=== PATIENT | female | born 1960 | race African-American/Black ===

== ENCOUNTER 2022-11-11 23:49 | Emergency (ER) | payer OTHER ==
[2022-11-11 23:56] VITALS: RESP 18; BMI 33.3
[2022-11-12 05:31] LABS: INR 1.09 (0.83-1.09); PROTHROMBIN TIME (PATIENT) 12.6 SEC (9.7-13.0)
[2022-11-12 05:34] LABS: ACTIVATED PTT 30.9 SECONDS (25.2-36.5)
[2022-11-12 05:36] LABS: BASO % 0.5 % (0-2.0); EOS % 0.5 % (0-4.5); HEMATOCRIT 38.5 % (32.4-45.2); HEMOGLOBIN 12.8 GM/dL (10.7-15.3); LYMPH % 35.2 % (8-40); MCH 29.9 pg (25.7-33.7); MCHC 33.3 g/dl (32.0-36.0); MEAN CELL VOLUME 89.6 fl (80-96); MONO % 6.3 % (3.8-10.2); NEUT % 57.5 % (42.8-82.8); PLATELET COUNT 196 10^3/uL (134-434); POTASSIUM 4.4 mmol/L (3.5-5.1); RBC 4.29 M/mm3 (3.60-5.2); RDW 13.2 % (11.6-15.6)
[2022-11-12 05:40] LABS: ALBUMIN 4.1 g/dl (3.4-5.0); BLOOD UREA NITROGEN 11.4 mg/dL (7-18); CALCIUM 9.4 mg/dL (8.5-10.1); MAGNESIUM 2.2 mg/dL (1.8-2.4)
[2022-11-12 05:43] LABS: CREATININE 0.5 mg/dL (0.55-1.3)
[2022-11-12 05:45] LABS: BILIRUBIN,TOTAL 0.4 mg/dL (0.2-1); TOT PROT 7.8 g/dl (6.4-8.2)
[2022-11-12 06:35] LABS: N-TERMINAL BNP 33.2 pg/ml (5-125)
[2022-11-12] MEDS ORDERED: traMADol HCL 50 MG TABLET PO ONE (06:42)
[2022-11-12 06:50] VITALS: BP 126/59; PULSE 67; TEMP 98
[2022-11-12] MEDS ORDERED: traMADol HCL 50 MG TABLET ONE (07:09)
== END 2022-11-12 07:14 | disposition home or self-care (01) ==
LOC: JER 23:49
DX: R42 Dizziness and giddiness (principal); M54.50 Low back pain, unspecified; M25.50 Pain in unspecified joint; R00.2 Palpitations; R10.11 Right upper quadrant pain; Z20.822 Contact with and (suspected) exposure to COVID-19
CPT/HCPCS: 0241U-QW; 36415; 70450-TC; 71046-TC-FY; 80053; 82550; 83735; 83880; 84439; 84443; 84484; 85025; 85610; 85730; 93005; 93010; 99285-25

== ENCOUNTER 2024-01-14 07:47 | Emergency (ER) | payer OTHER ==
[2024-01-14 07:58] VITALS: TEMP 98.1; BMI 32.4
[2024-01-14] MEDS ORDERED: ACETAMINOPHEN 500 MG TABLET (FP) ONE (09:26)
[2024-01-14] MEDS: ACETAMINOPHEN 500 MG TABLET (FP) PO ONE (09:28)
[2024-01-14 13:35] LABS: BASO % 0.5 % (0-2.0); HEMATOCRIT 37.4 % (32.4-45.2); HEMOGLOBIN 12.9 GM/dL (10.7-15.3); LYMPH % 40.4 % (8-40); MCH 30.4 pg (25.7-33.7); MCHC 34.4 g/dl (32.0-36.0); MEAN CELL VOLUME 88.6 fl (80-96); MEAN PLT VOLUME 8.3 fl (7.5-11.1); MONO % 8.9 % (3.8-10.2); NEUT % 48.2 % (42.8-82.8); PLATELET COUNT 207 10^3/uL (134-434); RBC 4.23 M/mm3 (3.60-5.2); RDW 13.1 % (11.6-15.6); WHITE BLOOD COUNT 5.8 K/mm3 (4.0-10.0)
[2024-01-14 14:07] LABS: POTASSIUM 4.2 mmol/L (3.5-5.1)
[2024-01-14 15:01] LABS: ALBUMIN 3.9 g/dl (3.4-5.0); BILIRUBIN,TOTAL 0.8 mg/dL (0.2-1); BLOOD UREA NITROGEN 9.1 mg/dL (7-18); CALCIUM 9.2 mg/dL (8.5-10.1); CREATININE 0.4 mg/dL (0.55-1.3); TOT PROT 7.8 g/dl (6.4-8.2)
[2024-01-14 15:14] VITALS: BP 155/60; PULSE 58; RESP 20
[2024-01-14 22:55] LABS: HIV INTERPRETATION NEGATIVE (NEGATIVE)
== END 2024-01-14 16:00 | disposition home or self-care (01) ==
LOC: JER 07:47
DX: R10.11 Right upper quadrant pain (principal); R10.13 Epigastric pain; R10.33 Periumbilical pain; M25.561 Pain in right knee; M25.562 Pain in left knee; M25.521 Pain in right elbow; M25.522 Pain in left elbow; M25.511 Pain in right shoulder; M25.512 Pain in left shoulder; K59.00 Constipation, unspecified
CPT/HCPCS: 36415; 73070-TC-LT-FY; 73070-TC-RT-FY; 74176-TC; 80053; 83690; 85025; 86803; 87389; 99285-25

== ENCOUNTER 2024-09-15 04:36 | Observation (INO) | payer OTHER ==
[2024-09-15] MEDS ORDERED: KETOROLAC TROMETHAMINE 30 MG/1 ML VIAL ONE (05:45)
[2024-09-15] MEDS: KETOROLAC TROMETHAMINE 30 MG/1 ML VIAL IM ONE (05:54)
[2024-09-15] MEDS ORDERED: oxyCODONE HCL 5 MG TABLET ONE (07:26)
[2024-09-15] MEDS: oxyCODONE HCL 5 MG TABLET PO ONE (07:30)
[2024-09-15] MEDS ORDERED: KETOROLAC TROMETHAMINE 15 MG/ML VIAL ONE (12:03)
[2024-09-15] MEDS: KETOROLAC TROMETHAMINE 15 MG/ML VIAL IVPUSH ONE (14:37)
[2024-09-15] MEDS ORDERED: morphine SULFATE 4 MG/ML VIAL ONE (15:37)
[2024-09-15] MEDS: morphine SULFATE 4 MG/ML VIAL IVPUSH ONE (15:43)
[2024-09-15 15:52] LABS: ABSOLUTE IMMATURE GRANULOCYTES 0.02 x10^3/uL (0.0-0.031); BASOPHILS # 0.02 x10^3/uL (0.01-0.08); EOSINOPHIL % 0.8 % (0.7-5.8); EOSINOPHILS # 0.06 x10^3/uL (0.04-0.36); HEMATOCRIT 36.4 % (34.1-44.9); HEMOGLOBIN 12.2 g/dL (11.2-15.7); MCHC 33.5 g/dl (32.2-35.5); MEAN CELL VOLUME 89.9 fl (79.4-94.8); MEAN PLT VOLUME 10.4 fl (9.4-12.3); MONOCYTE # 0.63 x10^3/uL (0.24-0.86); MONOCYTE % 8.6 % (4.7-12.5); PLATELET COUNT 207 x10^3/uL (182-369); RDW 12.4 % (12.4-16.4)
[2024-09-15 16:24] LABS: ALBUMIN 3.8 g/dl (3.4-5.0); BLOOD UREA NITROGEN 11.9 mg/dL (7-18); CALCIUM 9.4 mg/dL (8.5-10.1)
[2024-09-15 16:27] LABS: CREATININE 0.5 mg/dL (0.55-1.3)
[2024-09-15 16:28] LABS: BILIRUBIN,TOTAL 0.6 mg/dL (0.2-1)
[2024-09-15 16:29] LABS: TOT PROT 7.1 g/dl (6.4-8.2)
[2024-09-15 17:01] VITALS: BMI 31.4
[2024-09-15] MEDS: ACETAMINOPHEN 325 MG TABLET (FP) PO PRN (21:06)
[2024-09-15 23:08] LABS: EPI CELLS 4 /uL (0-25.1); HYALINE CASTS 0 /uL (0-3.1); URINE APPEARANCE Error; URINE BACTERIA 24 /uL (0-1359); URINE BILIRUBIN NEGATIVE (NEGATIVE); URINE COLOR YELLOW; URINE GLUCOSE (UA) NEGATIVE (NEGATIVE); URINE KETONE TRACE (NEGATIVE); URINE LEUK ESTERASE TRACE (NEGATIVE); URINE NITRITE NEGATIVE (NEGATIVE); URINE PROTEIN NEGATIVE (NEGATIVE); URINE RBC 21 /uL (0-23.9); URINE UROBILINOGEN 0.2 mg/dL (0.2-1.0)
[2024-09-16] MEDS: LOSARTAN POTASSIUM 50 MG TABLET PO SCH (20:40)
[2024-09-16] MEDS: DOCUSATE SODIUM 100 MG CAPSULE (FP) PO SCH (21:12)
[2024-09-17 10:30] VITALS: RESP 18
[2024-09-17 15:27] VITALS: BP 126/46; PULSE 66; TEMP 98.1
== END 2024-09-17 16:45 | disposition home or self-care (01) ==
LOC: JER 04:36 → JERBED 11:54 → J6S 16:17
PROVIDERS: ADMIT Internal Medicine; ATTEND Internal Medicine
PROC: 3E0233Z Introduction of Anti-inflammatory into Muscle, Percutaneous Approach (ICD-10-PCS; principal; 2024-09-15)
PROC: 3E0333Z Introduction of Anti-inflammatory into Peripheral Vein, Percutaneous Approach (ICD-10-PCS; 2024-09-15)
PROC: 3E033NZ Introduction of Analgesics, Hypnotics, Sedatives into Peripheral Vein, Percutaneous Approach (ICD-10-PCS; 2024-09-15)
DX: S22.49XA Multiple fractures of ribs, unspecified side, initial encounter for closed fracture (principal); W18.39XA Other fall on same level, initial encounter; Y93.89 Activity, other specified; Y92.410 Unspecified street and highway as the place of occurrence of the external cause; I10 Essential (primary) hypertension; E11.9 Type 2 diabetes mellitus without complications; G89.29 Other chronic pain; E78.5 Hyperlipidemia, unspecified
CPT/HCPCS: 36415; 71045-TC-FY; 71111-TC-FY; 71250-TC; 80053; 81003; 82962; 85025; 93005; 93010; 99285-25; G0378

== ENCOUNTER 2024-10-07 04:27 | Emergency (ER) | payer OTHER ==
[2024-10-07 04:36] VITALS: RESP 20; BMI 32.5
[2024-10-07] MEDS ORDERED: IBUPROFEN 600 MG TABLET (FP) PO ONE (05:25)
[2024-10-07] MEDS: IBUPROFEN 600 MG TABLET (FP) PO ONE (05:30)
[2024-10-07 07:16] LABS: ABSOLUTE IMMATURE GRANULOCYTES 0.01 x10^3/uL (0.0-0.031); BASOPHILS # 0.02 x10^3/uL (0.01-0.08); EOSINOPHIL % 2.4 % (0.7-5.8); EOSINOPHILS # 0.12 x10^3/uL (0.04-0.36); HEMATOCRIT 35.6 % (34.1-44.9); HEMOGLOBIN 11.8 g/dL (11.2-15.7); MCHC 33.1 g/dl (32.2-35.5); MEAN CELL VOLUME 91.5 fl (79.4-94.8); MEAN PLT VOLUME 10.4 fl (9.4-12.3); MONOCYTE # 0.43 x10^3/uL (0.24-0.86); MONOCYTE % 8.7 % (4.7-12.5); PLATELET COUNT 200 x10^3/uL (182-369); RDW 12.9 % (12.4-16.4)
[2024-10-07 07:28] LABS: POTASSIUM 3.8 mmol/L (3.5-5.1)
[2024-10-07 07:29] LABS: CALCIUM 9.4 mg/dL (8.5-10.1)
[2024-10-07 07:31] LABS: ALBUMIN 4.3 g/dl (3.4-5.0); BLOOD UREA NITROGEN 8.5 mg/dL (7-18); MAGNESIUM 2.2 mg/dL (1.8-2.4)
[2024-10-07 07:33] LABS: CREATININE 0.5 mg/dL (0.55-1.3)
[2024-10-07 07:36] LABS: BILIRUBIN,TOTAL 0.7 mg/dL (0.2-1); TOT PROT 8.1 g/dl (6.4-8.2)
[2024-10-07 08:46] VITALS: BP 151/52; PULSE 55; TEMP 97.5
== END 2024-10-07 09:30 | disposition home or self-care (01) ==
LOC: JER 04:27
DX: R07.89 Other chest pain (principal); W18.30XA Fall on same level, unspecified, initial encounter; Y99.0 Civilian activity done for income or pay
CPT/HCPCS: 36415; 71045-TC-FY; 80053; 83735; 84484; 85025; 93005; 93010; 99285-25